=== PATIENT | male | born 1985 | race Caucasian/White ===

== ENCOUNTER 2023-01-09 21:56 | Inpatient (IN) ==
[2023-01-09] MEDS ORDERED: SODIUM CHLORIDE 0.9% 1,000 ML IV SCH (22:45)
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
[2023-01-09 23:09] LABS: iSTAT Creatinine 1.1 mg/dl (0.6-1.3); iSTAT Hemoglobin 10.5 g/dl (14.0-18.0); iSTAT Ionized Calcium 0.86 mmol/l (1.12-1.32); iSTAT Potassium 2.7 mmol/L (3.3-5.0)
[2023-01-09] MEDS ORDERED: OPTIRAY 320 100ml IV ONE (23:23)
[2023-01-09 23:31] LABS: Alanine Aminotransferase 31 U/L (7-52); Albumin Globulin Ratio 0.9 (0.9-2); Albumin Level 3.3 gm/dl (3.4-5.0); Alkaline Phosphatase 151 U/L (34-104); Anion Gap 17 (3-11); Aspartate Aminotransferase 122 U/L (13-39); BUN Creatinine Ratio 9.6 (10-20); Bilirubin,Total 0.6 mg/dl (0.2-1.0); Blood Urea Nitrogen 7 mg/dl (6-23); Calcium 7.5 mg/dl (8.6-10.3); Carbon Dioxide 26 mmol/L (21-32); Chloride 91 mmol/L (98-107); Est GFR (African American) 138.3 ml/min; Est GFR (Non-African American) 119.3 ml/min; Globulin 3.7 gm/dl (2.5-4.0); Glucose 197 mg/dl (70-99(Fasting)); Potassium 2.8 mmol/L (3.5-5.1); Sodium 134 mmol/L (136-145)
[2023-01-09 23:38] LABS: Troponin I High Sensitivity 8.1 pg/ml (0-20)
[2023-01-09 23:49] LABS: Basophils # (auto) 0.03 K/uL (0.00-0.20); Basophils % (auto) 0.5 %; Hematocrit (blood only) 31.5 % (42.0-52.0); Hemoglobin 11.5 g/dl (14.0-18.0); Immature Granulocytes # (auto) 0.06 K/uL (0.01-0.20); Immature Granulocytes % (auto) 1.1 %; Lymphocytes # (auto) 0.62 K/uL (1.20-3.40); Lymphocytes % (auto) 11.1 %; Mean Corpuscular Hemoglobin 34.5 pg (25.0-34.0); Mean Corpuscular Hgb Conc 36.5 g/dL (32.0-36.0); Mean Corpuscular Volume 94.6 fL (80.0-100.0); Monocytes # (auto) 0.83 K/uL (0.11-0.59); Monocytes % (auto) 14.9 %; Neutrophils # (auto) 4.03 K/uL (1.40-6.50); Neutrophils % (auto) 72.4 %; Platelet Count 89 K/uL (130-400); Platelet Estimate Decreased (Normal); RDW Coefficient of Variation 12.4 % (11.5-14.5); RDW Standard Deviation 43.2 fL (36.4-46.3); Red Blood Count 3.33 M/uL (4.70-6.10); White Blood Count 5.57 K/ul (4.8-10.8)
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
[2023-01-09 23:54] LABS: INR 1.2 (0.9-1.1); Prothrombin Time 12.6 Seconds (9.0-12.0)
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
[2023-01-10 01:27] LABS: Appearance Urine Clear (Clear); Bacteria Urine Automated Negative (Negative); Bilirubin Urine Negative (Negative); Blood Urine 1+ (Negative); Color Urine Yellow; Glucose Urine UA Negative (Negative); Ketones Urine Trace (Negative); Leukocyte Esterase Urine Negative (Negative); Nitrite Urine Negative (Negative); Protein Urine 2+ (Negative); Specific Gravity Urine > 1.045 (1.000-1.030); Urobilinogen Urine Negative (Negative); pH Urine 6.5 (4.5-7.5)
[2023-01-10] MEDS ORDERED: POTASSIUM CHLORIDE 20 MEQ/15 ML UDC PO STA (01:30)
[2023-01-10] MEDS ORDERED: FOLIC ACID 1 MG TAB PO STA (01:30)
[2023-01-10] MEDS ORDERED: THIAMINE HCL 100 MG TAB PO STA (01:30)
[2023-01-10 01:59] LABS: Amphetamines+Metham, Urine Neg (Neg); Barbiturates, Urine Neg (Neg); Benzodiazepine, Urine Neg (Neg); Cocaine, Urine Neg (Neg); MDMA (Ecstacy), Urine Neg (Neg); Methadone, Urine Neg (Neg); Opiate, Urine Neg (Neg); Phencyclidine, Urine Neg (Neg)
[2023-01-10] MEDS ORDERED: POTASSIUM CHLORIDE CRTAB 20 MEQ TABCR PO STA (02:32)
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
[2023-01-10] MEDS ORDERED: LORazepam 2 MG/1 ML VIAL IV STA ×2 (03:20→16:37)
[2023-01-10] MEDS ORDERED: LORazepam 1 MG TAB PO PRN (04:45)
[2023-01-10] MEDS: LACTATED RINGER'S 1,000 ML IV SCH ×2 (05:28→17:20)
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
[2023-01-10] MEDS: ACETAMINOPHEN 325 MG TAB PO PRN (07:22)
--- NOTE | 2023-01-10 07:46 | Electrocardiogram Report ---
Test Reason : Blood Pressure : / mmHG Vent. Rate : 123 BPM Atrial Rate : 123 BPM P-R Int : 152 ms QRS Dur : 098 ms QT Int : 322 ms P-R-T Axes : 066 070 070 degrees QTc Int : 460 ms Sinus tachycardia Otherwise normal ECG No previous ECGs available Confirmed by Morris Carvajal ([id number] on 01/10/2023 7:46:30 AM Referred By: REFERRED SELF Confirmed By:Matteo Carvajal
[2023-01-10 08:54] LABS: Basophils # (auto) 0.02 K/uL (0.00-0.20); Basophils % (auto) 0.5 %; Hematocrit (blood only) 28.9 % (42.0-52.0); Hemoglobin 10.3 g/dl (14.0-18.0); Immature Granulocytes # (auto) 0.03 K/uL (0.01-0.20); Immature Granulocytes % (auto) 0.7 %; Lymphocytes # (auto) 0.48 K/uL (1.20-3.40); Lymphocytes % (auto) 11.2 %; Mean Corpuscular Hemoglobin 33.4 pg (25.0-34.0); Mean Corpuscular Hgb Conc 35.6 g/dL (32.0-36.0); Mean Corpuscular Volume 93.8 fL (80.0-100.0); Mean Platelet Volume 9.3 fL (9.4-12.4); Monocytes # (auto) 0.69 K/uL (0.11-0.59); Monocytes % (auto) 16.2 %; Neutrophils # (auto) 3.05 K/uL (1.40-6.50); Neutrophils % (auto) 71.4 %; Platelet Count 62 K/uL (130-400); RDW Coefficient of Variation 12.4 % (11.5-14.5); RDW Standard Deviation 42.9 fL (36.4-46.3); Red Blood Count 3.08 M/uL (4.70-6.10); White Blood Count 4.27 K/ul (4.8-10.8)
[2023-01-10] MEDS: MULTIVITAMIN TAB PO SCH (09:10)
[2023-01-10] MEDS: FOLIC ACID 1 MG TAB PO SCH (09:10)
[2023-01-10] MEDS: THIAMINE HCL 100 MG TAB PO SCH ×2 (09:10→23:17)
[2023-01-10 09:11] LABS: Anion Gap 12 (3-11); BUN Creatinine Ratio 8.3 (10-20); Blood Urea Nitrogen 5 mg/dl (6-23); C Reactive Protein 9.11 mg/dl (0-0.5); Calcium 7.1 mg/dl (8.6-10.3); Carbon Dioxide 27 mmol/L (21-32); Chloride 95 mmol/L (98-107); Est GFR (African American) 149.9 ml/min; Est GFR (Non-African American) 129.4 ml/min; Glucose 91 mg/dl (70-99(Fasting)); Potassium 3.1 mmol/L (3.5-5.1); Sodium 134 mmol/L (136-145)
[2023-01-10 09:14] LABS: Alanine Aminotransferase 25 U/L (7-52); Albumin Globulin Ratio 0.9 (0.9-2); Alkaline Phosphatase 120 U/L (34-104); Aspartate Aminotransferase 97 U/L (13-39); Bilirubin,Total 0.6 mg/dl (0.2-1.0); Globulin 3.2 gm/dl (2.5-4.0); Magnesium 0.7 mg/dl (1.7-2.4); Total Protein 6.2 gm/dl (6.0-8.3)
[2023-01-10 09:48] LABS: Phosphorus 2.9 mg/dl (2.5-4.9)
[2023-01-10] MEDS: MAGNESIUM SULFATE / D5W 1 GM/100 ML BAG IV SCH ×2 (12:01→13:10)
[2023-01-10 15:11] LABS: Hematocrit (blood only) 30.1 % (42.0-52.0); Hemoglobin 11.2 g/dl (14.0-18.0)
[2023-01-10] MEDS ORDERED: Ativan IV Alcohol Withdrawal--Active Protocol IV PRN (16:38)
[2023-01-10] MEDS ORDERED: LORazepam 2 MG/1 ML VIAL IV PRN (16:38)
[2023-01-10] MEDS ORDERED: LORazepam 2 MG/1 ML VIAL ONE (16:43)
[2023-01-10] MEDS: LORazepam 2 MG/1 ML VIAL IV PRN ×2 (19:51→23:18)
--- NOTE | 2023-01-10 20:02 | Billing Data ---
Date of Service January 10, 2023 Coding Level of Care Code 94760 INT INP/OBS CARE
[2023-01-10] MEDS: POTASSIUM CHLORIDE CRTAB 20 MEQ TABCR PO SCH (23:18)
[2023-01-11] MEDS: LORazepam 2 MG/1 ML VIAL IV PRN ×5 (02:15→23:35)
[2023-01-11 06:02] LABS: Basophils # (auto) 0.01 K/uL (0.00-0.20); Basophils % (auto) 0.3 %; Hemoglobin 10.6 g/dl (14.0-18.0); Immature Granulocytes # (auto) 0.03 K/uL (0.01-0.20); Lymphocytes # (auto) 0.63 K/uL (1.20-3.40); Lymphocytes % (auto) 20.4 %; Mean Corpuscular Hemoglobin 33.7 pg (25.0-34.0); Mean Corpuscular Hgb Conc 35.3 g/dL (32.0-36.0); Mean Corpuscular Volume 95.2 fL (80.0-100.0); Mean Platelet Volume 10.3 fL (9.4-12.4); Monocytes # (auto) 0.58 K/uL (0.11-0.59); Monocytes % (auto) 18.8 %; Neutrophils # (auto) 1.84 K/uL (1.40-6.50); Neutrophils % (auto) 59.5 %; Nucleated RBC # (auto) 0.02 K/uL (0.00-0.12); Nucleated RBC % (auto) 0.6 %; Platelet Count 56 K/uL (130-400); RDW Coefficient of Variation 12.1 % (11.5-14.5); Red Blood Count 3.15 M/uL (4.70-6.10); White Blood Count 3.09 K/ul (4.8-10.8)
[2023-01-11 06:24] LABS: Alanine Aminotransferase 23 U/L (7-52); Albumin Globulin Ratio 0.8 (0.9-2); Albumin Level 2.8 gm/dl (3.4-5.0); Alkaline Phosphatase 125 U/L (34-104); Anion Gap 10 (3-11); Aspartate Aminotransferase 82 U/L (13-39); BUN Creatinine Ratio 5.1 (10-20); Bilirubin,Total 0.7 mg/dl (0.2-1.0); Blood Urea Nitrogen 4 mg/dl (6-23); C Reactive Protein 9.96 mg/dl (0-0.5); Calcium 7.7 mg/dl (8.6-10.3); Carbon Dioxide 28 mmol/L (21-32); Chloride 95 mmol/L (98-107); Est GFR (African American) 133.9 ml/min; Est GFR (Non-African American) 115.5 ml/min; Globulin 3.3 gm/dl (2.5-4.0); Glucose 83 mg/dl (70-99(Fasting)); Magnesium 1.3 mg/dl (1.7-2.4); Potassium 3.6 mmol/L (3.5-5.1); Sodium 133 mmol/L (136-145); Total Protein 6.1 gm/dl (6.0-8.3)
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
[2023-01-11] MEDS: MAGNESIUM SULFATE / D5W 1 GM/100 ML BAG IV SCH ×4 (07:59→17:38)
[2023-01-11] MEDS: POTASSIUM CHLORIDE CRTAB 20 MEQ TABCR PO SCH ×2 (09:56→20:18)
[2023-01-11] MEDS: THIAMINE HCL 100 MG TAB PO SCH ×2 (09:56→19:52)
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
[2023-01-11] MEDS: FOLIC ACID 1 MG TAB PO SCH (10:06)
[2023-01-11] MEDS: MULTIVITAMIN TAB PO SCH (10:06)
--- NOTE | 2023-01-11 19:23 | Billing Data ---
Date of Service January 11, 2023 Coding Level of Care Code 63437 SUB INP/OBS CARE MIN
[2023-01-12] MEDS: LORazepam 2 MG/1 ML VIAL IV PRN ×3 (00:33→02:55)
[2023-01-12] MEDS ORDERED: PHENobarbital sodium 65 MG/ML VIAL IM PRN ×3 (02:52→22:43)
[2023-01-12] MEDS ORDERED: PHENobarbital sodium 130 MG/ML VIAL IM STA (02:52)
[2023-01-12] MEDS ORDERED: Patient's HEIGHT Needed STA (04:07)
[2023-01-12] MEDS: PHENobarbital sodium 65 MG/ML VIAL IM SCH ×2 (06:12→10:08)
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
[2023-01-12 08:39] LABS: Hematocrit (blood only) 34.4 % (42.0-52.0); Hemoglobin 12.3 g/dl (14.0-18.0); Mean Corpuscular Hemoglobin 33.7 pg (25.0-34.0); Mean Corpuscular Hgb Conc 35.8 g/dL (32.0-36.0); Mean Corpuscular Volume 94.2 fL (80.0-100.0); Mean Platelet Volume 11.1 fL (9.4-12.4); Platelet Count 68 K/uL (130-400); RDW Coefficient of Variation 12.2 % (11.5-14.5); RDW Standard Deviation 42.5 fL (36.4-46.3); Red Blood Count 3.65 M/uL (4.70-6.10); White Blood Count 5.76 K/ul (4.8-10.8)
[2023-01-12] MEDS: MULTIVITAMIN TAB PO SCH (08:51)
[2023-01-12] MEDS: FOLIC ACID 1 MG TAB PO SCH (08:51)
[2023-01-12] MEDS: THIAMINE HCL 100 MG TAB PO SCH (08:51)
[2023-01-12] MEDS: LACTATED RINGER'S 1,000 ML IV SCH ×2 (08:52→19:37)
[2023-01-12 09:03] LABS: Albumin Globulin Ratio 0.8 (0.9-2); Albumin Level 3.1 gm/dl (3.4-5.0); BUN Creatinine Ratio 5.6 (10-20); Bilirubin,Total 0.8 mg/dl (0.2-1.0); C Reactive Protein 4.83 mg/dl (0-0.5); Calcium 8.2 mg/dl (8.6-10.3); Creatinine Clr Calc Pharmacy 150.5 ml/min; Est GFR (African American) 139.9 ml/min; Est GFR (Non-African American) 120.7 ml/min; Globulin 3.9 gm/dl (2.5-4.0); Magnesium 1.5 mg/dl (1.7-2.4); Phosphorus 1.7 mg/dl (2.5-4.9); Potassium 3.7 mmol/L (3.5-5.1)
[2023-01-12 09:12] LABS: INR 1.2 (0.9-1.1); Prothrombin Time 12.6 Seconds (9.0-12.0)
[2023-01-12] MEDS ORDERED: POTASSIUM PHOS 3 MMOL/1 ML INFUSION IV STA (09:14)
[2023-01-12] MEDS ORDERED: POTASSIUM PHOSPHATE 21 MMOL in SODIUM CHLORIDE 0.9% 500 ML IV ONE (09:30)
[2023-01-12] MEDS: MAGNESIUM SULFATE / D5W 1 GM/100 ML BAG IV SCH ×3 (10:10→13:49)
[2023-01-12] MEDS: ASCORBIC ACID 500 MG TAB PO SCH (13:49)
[2023-01-12] MEDS ORDERED: STAT IV Infusion **Titration per Protocol STA (18:26)
[2023-01-12] MEDS ORDERED: PHENobarbitaL 30 MG TAB PO ONE (18:29)
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
[2023-01-12] MEDS: PHENobarbitaL 30 MG TAB PO SCH (18:33)
[2023-01-12] MEDS: dexMEDEtomidine 200 MCG/50 ML BAG IV SCH ×2 (18:59→20:41)
[2023-01-12] MEDS ORDERED: PHENobarbitaL 20 MG/5 ML GT SCH (21:00)
[2023-01-12] MEDS: THIAMINE HCL 500 MG in SODIUM CHLORIDE 0.9% 50 ML IV SCH (22:43)
[2023-01-13] MEDS: THIAMINE HCL 100 MG TAB PO SCH (00:11)
[2023-01-13] MEDS: PHENobarbitaL 30 MG TAB PO SCH ×3 (02:34→18:43)
[2023-01-13 04:37] LABS: Albumin Globulin Ratio 0.8 (0.9-2); BUN Creatinine Ratio 7.2 (10-20); Bilirubin,Total 0.9 mg/dl (0.2-1.0); Calcium 7.9 mg/dl (8.6-10.3); Creatinine Clr Calc Pharmacy 128.8 ml/min; Est GFR (African American) 131.2 ml/min; Est GFR (Non-African American) 113.2 ml/min; Globulin 3.7 gm/dl (2.5-4.0); Magnesium 1.5 mg/dl (1.7-2.4); Phosphorus 2.8 mg/dl (2.5-4.9); Potassium 3.9 mmol/L (3.5-5.1); Total Protein 6.7 gm/dl (6.0-8.3)
[2023-01-13] MEDS: dexMEDEtomidine 200 MCG/50 ML BAG IV SCH (04:44)
[2023-01-13] MEDS: THIAMINE HCL 500 MG in SODIUM CHLORIDE 0.9% 50 ML IV SCH ×3 (04:44→20:25)
[2023-01-13 04:48] LABS: Hematocrit (blood only) 31.1 % (42.0-52.0); Hemoglobin 11.3 g/dl (14.0-18.0); Mean Corpuscular Hemoglobin 34.2 pg (25.0-34.0); Mean Corpuscular Hgb Conc 36.3 g/dL (32.0-36.0); Mean Corpuscular Volume 94.2 fL (80.0-100.0); Mean Platelet Volume 11.5 fL (9.4-12.4); Platelet Count 58 K/uL (130-400); RDW Coefficient of Variation 12.1 % (11.5-14.5); RDW Standard Deviation 41.8 fL (36.4-46.3); White Blood Count 7.77 K/ul (4.8-10.8)
[2023-01-13 04:52] LABS: INR 1.2 (0.9-1.1); Prothrombin Time 13.5 Seconds (9.0-12.0)
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
[2023-01-13] MEDS: MULTIVITAMIN TAB PO SCH (08:53)
[2023-01-13] MEDS: FOLIC ACID 1 MG TAB PO SCH (08:53)
[2023-01-13] MEDS: ASCORBIC ACID 500 MG TAB PO SCH (08:54)
[2023-01-13] MEDS: ACETAMINOPHEN 325 MG TAB PO PRN (09:23)
[2023-01-13] MEDS ORDERED: PHENobarbital sodium 65 MG/ML VIAL IV STA (10:09)
[2023-01-13] MEDS: MAGNESIUM SULFATE / D5W 1 GM/100 ML BAG IV SCH ×2 (10:46→13:01)
[2023-01-13] MEDS: MAGNESIUM OXIDE 400 MG TAB PO SCH ×2 (10:46→20:25)
[2023-01-13] MEDS: DOXYCYCLINE HYCLATE 100 MG CAP PO SCH ×2 (10:46→20:25)
[2023-01-13 11:03] LABS: Lyme Ab IgG w/WB Rflx Negative (Negative); Lyme Ab IgM w/WB Rflx Negative (Negative)
[2023-01-13 16:22] LABS: BUN Creatinine Ratio 9.9 (10-20); Est GFR (African American) 132.5 ml/min; Est GFR (Non-African American) 114.3 ml/min; Phosphorus 3.8 mg/dl (2.5-4.9); Potassium 3.3 mmol/L (3.5-5.1)
[2023-01-13] MEDS ORDERED: POTASSIUM CHLORIDE CRTAB 20 MEQ TABCR PO STA (18:21)
[2023-01-13] MEDS ORDERED: SODIUM CHLORIDE 0.9% 500 ML IV ONE (21:13)
[2023-01-13 22:37] LABS: A calco-baum cmplx NotReported Not Detected (NotDetected); Bact fragilis Not Reported Not Detected (NotDetected); C auris Not Reported Not Detected (NotDetected); Calbicans Not Reported Not Detected (NotDetected); Candida glabrata Not Reported Not Detected (NotDetected); Candida krusei Not Reported Not Detected (NotDetected); Cneoformans/gatti Not Reported Not Detected (NotDetected); Cparapsilosis Not Reported Not Detected (NotDetected); E cloacae compx Not Reported Not Detected (NotDetected); Efaecalis Not Reported Not Detected (NotDetected); Efaecium Not Reported Not Detected (NotDetected); Enterobacterales Not Reported Not Detected (NotDetected); Escherichia coli Not Reported Not Detected (NotDetected); H influenzae Not Reported Not Detected (NotDetected); K aerogenes Not Reported Not Detected (NotDetected); Koxytoca Not Reported Not Detected (NotDetected); Kpneumoniae grp Not Reported Not Detected (NotDetected); Lmonocyt Not Reported Not Detected (NotDetected); N meningitidis Not Reported Not Detected (NotDetected); P aeruginosa Not Reported Not Detected (NotDetected); Proteus spp Not Reported Not Detected (NotDetected); Salmonella spp Not Reported Not Detected (NotDetected); Smarcescens Not Reported Not Detected (NotDetected); Staph lugdunensis Not Reported Not Detected (NotDetected); Staph spp. Not Reported DETECTED (NotDetected); Staphaureus Not Reported DETECTED (NotDetected); Staphepi Not Reported Not Detected (NotDetected); Stenmaltophilia Not Reported Not Detected (NotDetected); Strep agal(GrpB) Not Reported Not Detected (NotDetected); Strep pneum Not Reported Not Detected (NotDetected); Strep pyog (GrpA) Not Reported Not Detected (NotDetected); Strep spp Not Reported Not Detected (NotDetected); mecAC+MREJ Resistant Gene MRSA Not Detected (NotDetected)
[2023-01-13 23:01] LABS: Staphylococcus spp. DETECTED (NotDetected)
[2023-01-13] MEDS: cefTRIAXone SODIUM 2,000 MG in DEXTROSE 5 % MINI-B 50 ML IV SCH (23:48)
[2023-01-14] MEDS ORDERED: ACETAMINOPHEN 1,000 MG/100 ML VIAL IV STA (00:09)
[2023-01-14] MEDS: PHENobarbitaL 30 MG TAB PO SCH ×3 (02:16→22:20)
[2023-01-14 05:17] LABS: Basophils # (auto) 0.05 K/uL (0.00-0.20); Basophils % (auto) 0.3 %; Eosinophils # (auto) 0.02 K/uL (0.00-0.50); Eosinophils % (auto) 0.1 %; Hematocrit (blood only) 31.4 % (42.0-52.0); Hemoglobin 11.3 g/dl (14.0-18.0); Immature Granulocytes # (auto) 0.17 K/uL (0.01-0.20); Immature Granulocytes % (auto) 1.2 %; Lymphocytes # (auto) 1.12 K/uL (1.20-3.40); Lymphocytes % (auto) 7.8 %; Mean Corpuscular Hemoglobin 34.1 pg (25.0-34.0); Mean Corpuscular Volume 94.9 fL (80.0-100.0); Mean Platelet Volume 11.6 fL (9.4-12.4); Monocytes # (auto) 1.39 K/uL (0.11-0.59); Monocytes % (auto) 9.7 %; Neutrophils # (auto) 11.54 K/uL (1.40-6.50); Neutrophils % (auto) 80.9 %; Platelet Count 68 K/uL (130-400); RDW Coefficient of Variation 12.6 % (11.5-14.5); RDW Standard Deviation 43.8 fL (36.4-46.3); Red Blood Count 3.31 M/uL (4.70-6.10); White Blood Count 14.29 K/ul (4.8-10.8)
[2023-01-14 05:30] LABS: Calcium 8.3 mg/dl (8.6-10.3); Creatinine Clr Calc Pharmacy 121.5 ml/min; Est GFR (African American) 128.1 ml/min; Est GFR (Non-African American) 110.5 ml/min; Magnesium 1.9 mg/dl (1.7-2.4); Phosphorus 4.6 mg/dl (2.5-4.9); Potassium 3.6 mmol/L (3.5-5.1)
[2023-01-14 05:40] LABS: INR 1.3 (0.9-1.1); Prothrombin Time 14.3 Seconds (9.0-12.0)
[2023-01-14] MEDS ORDERED: STAT IV/IM STA (05:50)
[2023-01-14] MEDS ORDERED: POTASSIUM CHLORIDE CRTAB 20 MEQ TABCR PO STA (06:00)
[2023-01-14] MEDS: MAGNESIUM SULFATE / D5W 1 GM/100 ML BAG IV SCH ×2 (06:16→08:15)
[2023-01-14] MEDS: CALCIUM GLUCONATE 10% 1,000 MG in SODIUM CHLOR 0.9% MINI-B 50 ML IV SCH ×2 (06:17→06:42)
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
[2023-01-14] MEDS: THIAMINE HCL 500 MG in SODIUM CHLORIDE 0.9% 50 ML IV SCH ×3 (07:08→22:19)
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
[2023-01-14] MEDS: MAGNESIUM OXIDE 400 MG TAB PO SCH ×2 (08:16→22:20)
[2023-01-14] MEDS: ASCORBIC ACID 500 MG TAB PO SCH (08:16)
[2023-01-14] MEDS: MULTIVITAMIN TAB PO SCH (08:16)
[2023-01-14] MEDS: FOLIC ACID 1 MG TAB PO SCH (08:18)
--- NOTE | 2023-01-14 09:32 | XCELERA ---
[id number] \\[email or web address]\[id number]
[2023-01-14] MEDS ORDERED: LACTATED RINGER'S 1,000 ML IV SCH (10:45)
[2023-01-14] MEDS: cefTRIAXone SODIUM 2,000 MG in DEXTROSE 5 % MINI-B 50 ML IV SCH (11:28)
[2023-01-14 13:34] LABS: GC (Neis gonorrhoeae) RNA Not Detected (NotDetected)
--- NOTE | 2023-01-14 14:49 | Anesthesiology Consultation ---
Date of Service January 14, 2023 Assessment & Plan Chart Review Chart Review: Acceptable Risk for Surgery and Patient NOT seen in Pre Admission Testing Consults Requested none History Height/Weight Height: 5 ft 11 in Weight: 74 kg Allergies Allergy/AdvReac Type Severity Reaction Status Date / Time ondansetron [From Zofran] AdvReac Hallucinati Verified 01/10/23 02:18 ng Medications Home Medications Medication Instructions Recorded Confirmed Last Taken aluminum chloride 20 % topical 1 applic topical [id number] PRN 08/06/21 01/10/23 Unknown solution (Drysol) excessive sweating #37.5 mL mometasone 50 mcg/actuation nasal 2 spray intranasal DAILY PRN nasal 08/15/21 01/10/23 Unknown spray congestion #17 grams dextroamphetamine-amphetamine 7.5 7.5 mg PO DAILY #30 tabs 10/13/22 01/10/23 Unknown mg tablet (Adderall) sildenafil (pulm.hypertension) 20 50 mg PO ONCE PRN sexual activity 11/18/22 01/10/23 Unknown mg tablet #60 tabs trazodone 50 mg tablet 25 - 50 mg PO HS PRN Sleep 01/10/23 01/10/23 Unknown Active Medications Generic Name Dose Route Start Last Admin Trade Name Freq PRN Reason Stop Dose Admin Acetaminophen 650 mg 01/10/23 04:45 01/13/23 09:23 Acetaminophen 325 Mg Tab PO 02/09/23 04:44 650 mg Q4H PRN Administration Pain or Fever Ascorbic Acid 500 mg 01/12/23 11:30 01/14/23 08:16 Ascorbic Acid 500 Mg Tab PO 02/11/23 11:29 500 mg QAM TOMY Administration Folic Acid 1 mg 01/10/23 09:00 01/14/23 08:18 Folic Acid 1 Mg Tab PO 02/09/23 08:59 Not Given QAM TOMY Thiamine HCl 500 mg/ Sodium 55 mls @ 210 mls/hr 01/12/23 21:30 01/14/23 14:11 Chloride IV 01/15/23 13:46 Infused Q8H TOMY Infusion Ceftriaxone Sodium 2,000 mg/ 50 mls @ 100 mls/hr 01/14/23 00:00 01/14/23 12:05 Dextrose IV 01/28/23 00:00 Infused Q12H TOMY Infusion Protocol Lactated Ringer's 1,000 mls @ 80 mls/hr 01/14/23 10:45 01/14/23 11:00 Lr IV 01/14/23 23:14 80 mls/hr .[id number] TOMY Administration Magnesium Oxide 400 mg 01/13/23 10:00 01/14/23 08:16 Magnesium Oxide 400 Mg Tab PO 02/12/23 09:59 400 mg BID TOMY Administration Multivitamins 1 tab 01/10/23 09:00 01/14/23 08:16 Multivitamin Tab PO 02/09/23 08:59 1 tab QAM TOMY Administration Past Medical History Medical History Alcohol abuse with intoxication Anxiety Assessment & Plan (1) Alcohol withdrawal: (2) Depression: (3) Electrolyte abnormality: (4) Transaminitis: (5) WALDEMAR (generalized anxiety disorder): (6) Skin abnormalities: Neuro - ETOH misuse, ETOH withdraw: Active delirium tremens: Improving -Oral phenobarbital taper - Continue thiamine and folate ID -presumptive MSSA bacteremia: Gram-positive cocci without methicillin- resistant gene Febrile illness -Randolph negative, throat culture and GC chlamydia swabs pending -Obtain repeat blood cultures 11/2 AM ordered -Transition from 1 day 100 mg doxycycline therapy to IV Rocephin Day 1 Past Family History Family History Mother Breast cancer Grandfather (Paternal) Myocardial infarction Uncle Prostate cancer Denies family history of Colon cancer Ovarian cancer Past Surgical History Surgical History History of wisdom tooth extraction Social History Smoking Status: Former smoker Do You Dip or Chew Tobacco: No Hx Alcohol Use: Yes Alcohol type: beer and hard liquor Hx Substance Use: No Physical Exam Vital Signs Last Vital Signs Temp 37.7 C H 01/14/23 11:38 Pulse 114 H 01/14/23 11:00 Resp 13 01/14/23 11:00 BP 133/90 01/14/23 11:00 Pulse Ox 98 01/14/23 11:00 O2 Del Method Room Air 01/14/23 08:35 Testing Laboratory Results 01/14/23 04:35 01/14/23 04:35 PT 14.3 Seconds (9.0-12.0) H 01/14/23 04:35 INR 1.3 (0.9-1.1) H 01/14/23 04:35 Urine Color Yellow 01/10/23 01:05 Urine Appearance Clear (Clear) 01/10/23 01:05 Urine pH 6.5 (4.5-7.5) 01/10/23 01:05 Ur Specific [place] 1.014 (1.000-1.030) 01/13/23 00:19 Urine Protein 2+ (Negative) H 01/10/23 01:05 Urine Glucose (UA) Negative (Negative) 01/10/23 01:05 Urine Ketones Trace (Negative) H 01/10/23 01:05 Urine Nitrite Negative (Negative) 01/10/23 01:05 Ur Leukocyte Esterase Negative (Negative) 01/10/23 01:05 Urine WBC (Auto) 1-5 /hpf (0-5) 01/10/23 01:05 Urine RBC (Auto) 5-10 /hpf (0-4) H 01/10/23 01:05 U Hyaline Cast (Auto) 1-5 /lpf (0-5) 01/10/23 01:05 U Epithel Cells (Auto) 5-10 /lpf (0-5) H 01/10/23 01:05 Urine Bacteria (Auto) Negative (Negative) 01/10/23 01:05 01/13/23 11:44 Throat Culture - Preliminary Throat Moderate normal erick present, final report to follow. 01/13/23 10:06 Aerobic Blood Culture - Preliminary Blood Staphylococcus species Anaerobic Blood Culture - Preliminary Staphylococcus species 01/13/23 10:02 Aerobic Blood Culture - Preliminary Blood Staphylococcus species Anaerobic Blood Culture - Preliminary Staphylococcus species 01/13/23 13:55 Gram Stain - Final Back,Upper Wound Culture - Preliminary Staphylococcus species Electrocardiogram Date: 01/10/23 DICTATED BY:Morris Carvajal MD Test Reason : Blood Pressure : / mmHG Vent. Rate : 123 BPM Atrial Rate : 123 BPM P-R Int : 152 ms QRS Dur : 098 ms QT Int : 322 ms P-R-T Axes : 066 070 070 degrees QTc Int : 460 ms Sinus tachycardia Otherwise normal ECG No previous ECGs available Confirmed by Morris Carvajal ([id number]) on 01/10/2023 7:46:30 AM
[2023-01-15] MEDS: cefTRIAXone SODIUM 2,000 MG in DEXTROSE 5 % MINI-B 50 ML IV SCH ×3 (00:21→23:07)
[2023-01-15] MEDS: THIAMINE HCL 500 MG in SODIUM CHLORIDE 0.9% 50 ML IV SCH ×2 (05:26→13:15)
[2023-01-15 06:28] LABS: Babesia microti DNA Not Detected (Not Detected)
[2023-01-15 07:02] LABS: Hematocrit (blood only) 26.6 % (42.0-52.0); Hemoglobin 9.7 g/dl (14.0-18.0); Mean Corpuscular Hemoglobin 34.2 pg (25.0-34.0); Mean Corpuscular Hgb Conc 36.5 g/dL (32.0-36.0); Mean Corpuscular Volume 93.7 fL (80.0-100.0); Mean Platelet Volume 11.6 fL (9.4-12.4); Platelet Count 105 K/uL (130-400); RDW Coefficient of Variation 12.6 % (11.5-14.5); RDW Standard Deviation 43.7 fL (36.4-46.3); Red Blood Count 2.84 M/uL (4.70-6.10); White Blood Count 9.32 K/ul (4.8-10.8)
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
[2023-01-15 07:08] LABS: BUN Creatinine Ratio 12.1 (10-20); Calcium 8.1 mg/dl (8.6-10.3); Creatinine Clr Calc Pharmacy 161.3 ml/min; Est GFR (African American) 144.2 ml/min; Est GFR (Non-African American) 124.4 ml/min; Magnesium 1.7 mg/dl (1.7-2.4); Phosphorus 3.4 mg/dl (2.5-4.9); Potassium 3.6 mmol/L (3.5-5.1)
[2023-01-15 07:11] LABS: Basophils # (auto) 0.02 K/uL (0.00-0.20); Basophils % (auto) 0.2 %; Immature Granulocytes # (auto) 0.63 K/uL (0.01-0.20); Immature Granulocytes % (auto) 6.8 %; Lymphocytes # (auto) 0.74 K/uL (1.20-3.40); Lymphocytes % (auto) 7.9 %; Monocytes # (auto) 1.17 K/uL (0.11-0.59); Monocytes % (auto) 12.6 %; Neutrophils # (auto) 6.76 K/uL (1.40-6.50); Neutrophils % (auto) 72.5 %
[2023-01-15 07:38] LABS: INR 1.2 (0.9-1.1)
[2023-01-15] MEDS: PHENobarbitaL 30 MG TAB PO SCH ×2 (09:43→23:00)
[2023-01-15] MEDS: FOLIC ACID 1 MG TAB PO SCH (09:43)
[2023-01-15] MEDS: MULTIVITAMIN TAB PO SCH (09:44)
[2023-01-15] MEDS: MAGNESIUM OXIDE 400 MG TAB PO SCH ×2 (09:44→20:13)
[2023-01-15] MEDS: ASCORBIC ACID 500 MG TAB PO SCH (09:44)
[2023-01-15] MEDS ORDERED: LACTATED RINGER'S 1,000 ML IV SCH (10:00)
[2023-01-15 11:17] LABS: HBSAG NON-REACTIVE (NON-REACTIVE); Hepatitis A Antibody IgM NON-REACTIVE (NON-REACTIVE); Hepatitis B Core Antibody IgM NON-REACTIVE (NON-REACTIVE)
[2023-01-15 13:39] LABS: C Reactive Protein 39.26 mg/dl (0-0.5)
[2023-01-15 15:27] LABS: Hematocrit (blood only) 26.2 % (42.0-52.0); Hemoglobin 9.7 g/dl (14.0-18.0)
[2023-01-15 22:19] LABS: Appearance Urine Clear (Clear); Bacteria Urine Automated Negative (Negative); Blood Urine Negative (Negative); Color Urine Orange; Glucose Urine UA Negative (Negative); Ketones Urine 1+ (Negative); Leukocyte Esterase Urine Trace (Negative); Nitrite Urine Positive (Negative); Protein Urine 1+ (Negative); Specific Gravity Urine 1.029 (1.000-1.030); Urobilinogen Urine Negative (Negative)
[2023-01-15 22:29] LABS: Bilirubin Urine 2+ (Negative)
[2023-01-16] MEDS ORDERED: PHENobarbitaL 30 MG TAB PO STA (03:05)
[2023-01-16 06:59] LABS: Anion Gap 7 (3-11); BUN Creatinine Ratio 14.3 (10-20); Blood Urea Nitrogen 8 mg/dl (6-23); Carbon Dioxide 27 mmol/L (21-32); Chloride 95 mmol/L (98-107); Creatinine Clr Calc Pharmacy 194.2 ml/min; Est GFR (African American) > 150.0 ml/min; Est GFR (Non-African American) 133.1 ml/min; Glucose 108 mg/dl (70-99(Fasting)); Magnesium 1.7 mg/dl (1.7-2.4); Phosphorus 2.8 mg/dl (2.5-4.9); Potassium 3.4 mmol/L (3.5-5.1); Sodium 129 mmol/L (136-145)
[2023-01-16 07:02] LABS: Basophils # (auto) 0.02 K/uL (0.00-0.20); Basophils % (auto) 0.4 %; Eosinophils # (auto) 0.01 K/uL (0.00-0.50); Eosinophils % (auto) 0.2 %; Hematocrit (blood only) 27.7 % (42.0-52.0); Hemoglobin 9.8 g/dl (14.0-18.0); Immature Granulocytes # (auto) 0.03 K/uL (0.01-0.20); Immature Granulocytes % (auto) 0.5 %; Lymphocytes % (auto) 12.4 %; Mean Corpuscular Hemoglobin 33.4 pg (25.0-34.0); Mean Corpuscular Hgb Conc 35.4 g/dL (32.0-36.0); Mean Corpuscular Volume 94.5 fL (80.0-100.0); Mean Platelet Volume 12.1 fL (9.4-12.4); Monocytes # (auto) 0.92 K/uL (0.11-0.59); Monocytes % (auto) 16.3 %; Neutrophils # (auto) 3.98 K/uL (1.40-6.50); Neutrophils % (auto) 70.2 %; Platelet Count 163 K/uL (130-400); RDW Coefficient of Variation 12.6 % (11.5-14.5); RDW Standard Deviation 44.1 fL (36.4-46.3); Red Blood Count 2.93 M/uL (4.70-6.10); White Blood Count 5.66 K/ul (4.8-10.8)
[2023-01-16 07:09] LABS: INR 1.1 (0.9-1.1); Prothrombin Time 11.9 Seconds (9.0-12.0)
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
[2023-01-16 08:30] LABS: C Reactive Protein 29.98 mg/dl (0-0.5)
[2023-01-16] MEDS: FOLIC ACID 1 MG TAB PO SCH (09:08)
[2023-01-16] MEDS: PHENobarbitaL 30 MG TAB PO SCH ×2 (09:08→21:16)
[2023-01-16] MEDS: THIAMINE HCL 100 MG TAB PO SCH (09:09)
[2023-01-16] MEDS: LACTATED RINGER'S 1,000 ML IV SCH ×2 (09:09→15:22)
[2023-01-16] MEDS: MULTIVITAMIN TAB PO SCH (09:09)
[2023-01-16] MEDS: MAGNESIUM OXIDE 400 MG TAB PO SCH ×2 (09:09→21:17)
[2023-01-16] MEDS ORDERED: ceFAZolin 2000MG 2,000 MG/15 ML SYR IV STA (09:11)
--- NOTE | 2023-01-16 10:18 | XRay Report ---
XR chest 1V portable CLINICAL HISTORY: Shortness of breath. COMPARISON STUDY: Chest CT January 09, 2023. FINDINGS: There is no pneumothorax. Possible small left pleural effusion. Lung volumes are mildly dim inished. There are bibasilar opacities, greater on the left. Cardiomediastinal silhouette is unremark able. There is no evidence for pulmonary edema. IMPRESSION: 1. Low lung volumes with bibasilar opacities, greater on the left. These opacities could reflect pneu monia or atelectasis. 2. Possible small left pleural effusion. No pneumothorax. ACT 112: Negative or not required by law. Electronically signed by: Feliberto Loyola M.D. 01/16/2023 10:17 AM
[2023-01-16] MEDS: CEFEPIME 2,000 MG in SYRINGE 0 ML IV SCH ×2 (13:13→20:15)
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
[2023-01-16] MEDS ORDERED: SODIUM CHLORIDE 0.9% 1,000 ML IV SCH (16:30)
[2023-01-16] MEDS ORDERED: ceFAZolin 2000MG 2,000 MG/15 ML SYR IV SCH (18:00)
[2023-01-16] MEDS ORDERED: PHENobarbital sodium 65 MG/ML VIAL IM STA (23:15)
[2023-01-17] MEDS: CEFEPIME 2,000 MG in SYRINGE 0 ML IV SCH ×3 (03:08→20:56)
[2023-01-17 06:26] LABS: Hematocrit (blood only) 28.8 % (42.0-52.0); Hemoglobin 10.5 g/dl (14.0-18.0); Mean Corpuscular Hemoglobin 34.4 pg (25.0-34.0); Mean Corpuscular Hgb Conc 36.5 g/dL (32.0-36.0); Mean Corpuscular Volume 94.4 fL (80.0-100.0); Mean Platelet Volume 11.2 fL (9.4-12.4); Platelet Count 272 K/uL (130-400); RDW Coefficient of Variation 12.5 % (11.5-14.5); Red Blood Count 3.05 M/uL (4.70-6.10); White Blood Count 7.43 K/ul (4.8-10.8)
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
[2023-01-17] MEDS: ACETAMINOPHEN 325 MG TAB PO PRN ×3 (07:30→20:26)
[2023-01-17] MEDS: MULTIVITAMIN TAB PO SCH (07:32)
[2023-01-17] MEDS: FOLIC ACID 1 MG TAB PO SCH (07:32)
[2023-01-17] MEDS: THIAMINE HCL 100 MG TAB PO SCH (07:32)
[2023-01-17] MEDS: PHENobarbitaL 30 MG TAB PO SCH ×2 (07:34→21:16)
[2023-01-17] MEDS: MAGNESIUM OXIDE 400 MG TAB PO SCH ×2 (07:35→20:26)
[2023-01-17 07:40] LABS: Alanine Aminotransferase 43 U/L (7-52); Albumin Globulin Ratio 0.7 (0.9-2); Albumin Level 2.6 gm/dl (3.4-5.0); Alkaline Phosphatase 95 U/L (34-104); Anion Gap 12 (3-11); Aspartate Aminotransferase 90 U/L (13-39); BUN Creatinine Ratio 9.3 (10-20); Bilirubin,Total 0.9 mg/dl (0.2-1.0); Blood Urea Nitrogen 5 mg/dl (6-23); C Reactive Protein 20.01 mg/dl (0-0.5); Calcium 8.3 mg/dl (8.6-10.3); Carbon Dioxide 24 mmol/L (21-32); Chloride 97 mmol/L (98-107); Creatinine Clr Calc Pharmacy 196.6 ml/min; Est GFR (African American) > 150.0 ml/min; Est GFR (Non-African American) 135.1 ml/min; Glucose 87 mg/dl (70-99(Fasting)); Magnesium 1.7 mg/dl (1.7-2.4); Phosphorus 3.1 mg/dl (2.5-4.9); Potassium 3.4 mmol/L (3.5-5.1); Sodium 133 mmol/L (136-145); Total Protein 6.6 gm/dl (6.0-8.3)
[2023-01-17] MEDS ORDERED: POTASSIUM CHLORIDE CRTAB 20 MEQ TABCR PO ONE (07:44)
[2023-01-17 07:54] LABS: INR 1.2 (0.9-1.1); Prothrombin Time 12.5 Seconds (9.0-12.0)
--- NOTE | 2023-01-17 12:09 | Communication Note ---
Date of Service: January 17, 2023 Patient was sleeping during rounds. Continues with periods of intermittent confusion, responding to internal stimuli, tachy. Phenobarb taper, no recent A tivan prn. Ativan 1 mg q6 prn typically preferred over antipsychotics for withdrawal delirium. If he does get aggressive Zyprexa 5 mg IM would be fine as his sodium has improved. Hospitalist updated.
[2023-01-17] MEDS ORDERED: LORazepam 2 MG/1 ML VIAL IV PRN (16:35)
[2023-01-18] MEDS: CEFEPIME 2,000 MG in SYRINGE 0 ML IV SCH ×3 (04:49→20:35)
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
[2023-01-18 07:15] LABS: Hematocrit (blood only) 26.8 % (42.0-52.0); Hemoglobin 9.5 g/dl (14.0-18.0); Mean Corpuscular Hemoglobin 33.7 pg (25.0-34.0); Mean Corpuscular Hgb Conc 35.4 g/dL (32.0-36.0); Platelet Count 393 K/uL (130-400); RDW Standard Deviation 45.6 fL (36.4-46.3); Red Blood Count 2.82 M/uL (4.70-6.10); White Blood Count 10.85 K/ul (4.8-10.8)
[2023-01-18] MEDS ORDERED: LACTATED RINGER'S 1,000 ML IV SCH (07:30)
[2023-01-18 07:31] LABS: Alanine Aminotransferase 44 U/L (7-52); Albumin Globulin Ratio 0.7 (0.9-2); Albumin Level 2.5 gm/dl (3.4-5.0); Alkaline Phosphatase 94 U/L (34-104); Anion Gap 8 (3-11); Aspartate Aminotransferase 54 U/L (13-39); BUN Creatinine Ratio 9.3 (10-20); Bilirubin,Total 0.8 mg/dl (0.2-1.0); Blood Urea Nitrogen 5 mg/dl (6-23); Calcium 7.9 mg/dl (8.6-10.3); Carbon Dioxide 26 mmol/L (21-32); Chloride 95 mmol/L (98-107); Creatinine Clr Calc Pharmacy 199.8 ml/min; Est GFR (African American) > 150.0 ml/min; Est GFR (Non-African American) 135.1 ml/min; Globulin 3.8 gm/dl (2.5-4.0); Glucose 106 mg/dl (70-99(Fasting)); Magnesium 1.6 mg/dl (1.7-2.4); Phosphorus 2.7 mg/dl (2.5-4.9); Potassium 3.5 mmol/L (3.5-5.1); Sodium 129 mmol/L (136-145); Total Protein 6.3 gm/dl (6.0-8.3)
[2023-01-18] MEDS ORDERED: MAGNESIUM SULFATE / D5W 1 GM/100 ML BAG IV ONE (07:35)
[2023-01-18] MEDS: MAGNESIUM OXIDE 400 MG TAB PO SCH ×2 (07:43→20:35)
[2023-01-18] MEDS: PHENobarbitaL 30 MG TAB PO SCH ×2 (07:43→17:47)
[2023-01-18] MEDS: ACETAMINOPHEN 325 MG TAB PO PRN ×3 (07:43→23:48)
[2023-01-18] MEDS: FOLIC ACID 1 MG TAB PO SCH (07:44)
[2023-01-18] MEDS: THIAMINE HCL 100 MG TAB PO SCH (07:44)
[2023-01-18] MEDS: MULTIVITAMIN TAB PO SCH (07:44)
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
[2023-01-18] MEDS ORDERED: GADOBUTROL 65ML VIAL IV ONE (13:55)
--- NOTE | 2023-01-18 15:09 | XRay Report ---
XR chest 1V portable CLINICAL HISTORY: HAP TECHNIQUE: Single frontal radiograph of the chest was obtained. Comparison: Comparison is made to chest radiograph 01/16/2023 FINDINGS: No lines and tubes are seen. The cardiomediastinal silhouette is normal. Opacities are seen in the ri ght perihilar lung and left lung base. Small bilateral pleural effusions are seen. IMPRESSION: 1. Scattered airspace opacities are stable to minimally increased from prior exam. 2. Small bilateral pleural effusions. ACT 112: Negative or not required by law. Electronically signed by: Merlin Slater M.D. 01/18/2023 3:08 PM
--- NOTE | 2023-01-18 15:17 | Magnetic Resonance Report ---
MR brain wo/w con CLINICAL HISTORY: encephalopathy TECHNIQUE: Multiplanar and multisequence MR images of the brain were obtained prior to and following administration of gadolinium contrast. Comparison: None available at the time of this dictation. FINDINGS: There is a small focus of increased DWI signal in the left temporal lobe with modestly decreased ADC corresponding to a defined focus of edema and possible encephalomalacia on T1/T2 weighted imaging. Fo ci of T2 and FLAIR hyperintensity are noted in the paraventricular areas consistent with chronic smal l vessel ischemic disease. Ex vacuo ventriculomegaly and sulcal enlargement is noted compatible with diffuse volume loss. No mass or abnormal enhancement is seen. There is no mass effect or midline shif t. There is no evidence of acute intraparenchymal hemorrhage. No extra axial fluid collections are se en. The corpus callosum, pituitary gland, and cerebellar tonsils appear grossly unremarkable. Flow voids of the major intracranial arterial vessels are identified. The imaged portions of the para nasal sinuses, mastoid air cells, and orbits are unremarkable. IMPRESSION: Punctate left temporal focus of increased DWI signal with equivocal ADC may reflect pseudonormalizati on of ADC as seen in the subacute stage of an acute lacunar infarct. Otherwise no acute abnormalities are seen. ACT 112: Negative or not required by law. Electronically signed by: Merlin Slater M.D. 01/18/2023 3:14 PM
[2023-01-19] MEDS: CEFEPIME 2,000 MG in SYRINGE 0 ML IV SCH ×2 (04:08→13:33)
[2023-01-19] MEDS: ACETAMINOPHEN 325 MG TAB PO PRN ×3 (05:27→23:28)
[2023-01-19 06:44] LABS: Hematocrit (blood only) 28.1 % (42.0-52.0); Hemoglobin 9.9 g/dl (14.0-18.0); Mean Corpuscular Hemoglobin 34.1 pg (25.0-34.0); Mean Corpuscular Hgb Conc 35.2 g/dL (32.0-36.0); Mean Corpuscular Volume 96.9 fL (80.0-100.0); Mean Platelet Volume 10.6 fL (9.4-12.4); Platelet Count 506 K/uL (130-400); RDW Coefficient of Variation 13.2 % (11.5-14.5); RDW Standard Deviation 46.8 fL (36.4-46.3); White Blood Count 10.16 K/ul (4.8-10.8)
[2023-01-19 06:48] LABS: Anion Gap 7 (3-11); BUN Creatinine Ratio 10.9 (10-20); Blood Urea Nitrogen 6 mg/dl (6-23); C Reactive Protein 27.17 mg/dl (0-0.5); Carbon Dioxide 27 mmol/L (21-32); Chloride 98 mmol/L (98-107); Creatinine Clr Calc Pharmacy 197.8 ml/min; Est GFR (African American) > 150.0 ml/min; Est GFR (Non-African American) 134.1 ml/min; Glucose 99 mg/dl (70-99(Fasting)); Magnesium 1.8 mg/dl (1.7-2.4); Potassium 3.6 mmol/L (3.5-5.1); Sodium 132 mmol/L (136-145)
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
[2023-01-19] MEDS: MULTIVITAMIN TAB PO SCH (09:25)
[2023-01-19] MEDS: THIAMINE HCL 100 MG TAB PO SCH ×2 (09:25→20:10)
[2023-01-19] MEDS: FOLIC ACID 1 MG TAB PO SCH (09:25)
[2023-01-19] MEDS: MAGNESIUM OXIDE 400 MG TAB PO SCH ×2 (09:27→20:09)
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
--- NOTE | 2023-01-19 17:14 | Billing Data ---
Date of Service January 19, 2023 Coding Level of Care Code 62831 SUB INP/OBS CARE
[2023-01-19] MEDS ORDERED: OPTIRAY 320 500ml IV ONE (20:03)
[2023-01-19] MEDS ORDERED: ceFAZolin 2000MG 2,000 MG/15 ML SYR IV SCH (20:30)
--- NOTE | 2023-01-19 21:02 | CT Scan Report ---
Exam(s): CTA CHEST IV Amt: 112ML OPTIRAY 320 EXAM: CT Angiography Chest With Intravenous Contrast CLINICAL HISTORY: Reason for exam: PE. TECHNIQUE: Axial computed tomographic angiography images of the chest with intravenous contrast. CTDI is 37 mGy and DLP is 754.63 mGy-cm. Automated exposure control was utilized for the study. A dose lowering technique was utilized adhering to the principles of ALARA. MIP reconstructed images were created and reviewed. COMPARISON: No relevant prior studies available. FINDINGS: Pulmonary arteries: No acute pulmonary embolism. Evaluation is limited due to suboptimal contrast bolus timing. Aorta: No acute findings. No aortic aneurysm or dissection. Lungs: See below. Pleural space: Small bilateral pleural effusions. Subjacent airspace consolidation/atelectasis. Heart: Cardiomegaly. No significant pericardial effusion. No evidence of RV dysfunction. Bones/joints: No acute fracture. No dislocation. Soft tissues: Unremarkable. Lymph nodes: Unremarkable. No enlarged lymph nodes. Liver: Hepatic steatosis. Intraperitoneal space: Mild fluid in the RIGHT major fissure. IMPRESSION: 1. No aortic aneurysm or dissection. 2. Small bilateral pleural effusions. Subjacent airspace consolidation/atelectasis. 3. No acute pulmonary embolism. Evaluation is limited due to suboptimal contrast bolus timing. Electronically signed by: Thomas Rinaldi MD 01/19/23 21:01 PM
[2023-01-19] MEDS: PHENobarbitaL 30 MG TAB PO SCH (22:23)
[2023-01-19] MEDS: NAFCILLIN SODIUM 2,000 MG in DEXTROSE 5% MINI-B 100 ML IV SCH (22:25)
[2023-01-20] MEDS: NAFCILLIN SODIUM 2,000 MG in DEXTROSE 5% MINI-B 100 ML IV SCH ×6 (01:40→23:37)
[2023-01-20] MEDS: ACETAMINOPHEN 325 MG TAB PO PRN ×2 (04:57→23:06)
[2023-01-20 06:43] LABS: Hematocrit (blood only) 28.8 % (42.0-52.0); Mean Corpuscular Hemoglobin 33.7 pg (25.0-34.0); Mean Corpuscular Hgb Conc 34.7 g/dL (32.0-36.0); Mean Platelet Volume 10.2 fL (9.4-12.4); Platelet Count 713 K/uL (130-400); RDW Coefficient of Variation 13.3 % (11.5-14.5); RDW Standard Deviation 47.6 fL (36.4-46.3); Red Blood Count 2.97 M/uL (4.70-6.10); White Blood Count 11.62 K/ul (4.8-10.8)
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
[2023-01-20 07:16] LABS: Albumin Globulin Ratio 0.6 (0.9-2); Albumin Level 2.5 gm/dl (3.4-5.0); BUN Creatinine Ratio 10.9 (10-20); Bilirubin,Total 0.9 mg/dl (0.2-1.0); Calcium 8.1 mg/dl (8.6-10.3); Creatinine Clr Calc Pharmacy 169.9 ml/min; Globulin 4.5 gm/dl (2.5-4.0); Magnesium 1.7 mg/dl (1.7-2.4); Potassium 3.4 mmol/L (3.5-5.1)
[2023-01-20] MEDS ORDERED: POTASSIUM CHLORIDE CRTAB 20 MEQ TABCR PO STA (07:25)
[2023-01-20] MEDS: MULTIVITAMIN TAB PO SCH (09:30)
[2023-01-20] MEDS: THIAMINE HCL 100 MG TAB PO SCH ×3 (09:30→20:11)
[2023-01-20] MEDS: FOLIC ACID 1 MG TAB PO SCH (09:30)
[2023-01-20] MEDS: MAGNESIUM OXIDE 400 MG TAB PO SCH ×2 (09:45→20:10)
[2023-01-20] MEDS ORDERED: ONDANSETRON INJ 2 MG/ML 2 ML VIAL ONE (10:20)
[2023-01-20] MEDS ORDERED: GLYCOPYRROLATE 0.2 MG/ML VIAL ONE (10:20)
[2023-01-20] MEDS ORDERED: PROPOFOL IV EMULSION 10 MG/ML 20 ML VIAL IV ONE (10:20)
[2023-01-20] MEDS ORDERED: LIDOCAINE 2% 2 ML VIAL/AMP(20MG/ML) INFIL ONE (10:20)
[2023-01-20] MEDS ORDERED: BENZOCAINE/TETRACAIN/BUTAM 50 APPLN/5 GM CAN EXT ONE (10:26)
--- NOTE | 2023-01-20 10:34 | Anesthesiology Consultation ---
Date of Service January 20, 2023 Assessment & Plan Chart Review Chart Review: 3d specialist initiated History Surgery Operation Date: 01/20/23 12:00 Proposed Procedures p Transesophageal Echo w/Anesthesia - James Gann MD Height/Weight Height: 5 ft 11 in Weight: 75.9 kg Allergies Allergy/AdvReac Type Severity Reaction Status Date / Time ondansetron [From Zofran] AdvReac Hallucinati Verified 01/10/23 02:18 ng Medications Home Medications Medication Instructions Recorded Confirmed Last Taken aluminum chloride 20 % topical 1 applic topical 2XWK PRN 08/06/21 01/10/23 Unknown solution (Drysol) excessive sweating #37.5 mL mometasone 50 mcg/actuation nasal 2 spray intranasal DAILY PRN nasal 08/15/21 01/10/23 Unknown spray congestion #17 grams dextroamphetamine-amphetamine 7.5 7.5 mg PO DAILY #30 tabs 10/13/22 01/10/23 Unknown mg tablet (Adderall) sildenafil (pulm.hypertension) 20 50 mg (2.5 x 20 mg) PO ONCE PRN 11/18/22 01/10/23 Unknown mg tablet sexual activity #60 tabs trazodone 50 mg tablet 25 - 50 mg PO HS PRN Sleep 01/10/23 01/10/23 Unknown Active Medications Generic Name Dose Route Start Last Admin Trade Name Freq PRN Reason Stop Dose Admin Acetaminophen 650 mg 01/10/23 04:45 01/20/23 04:57 Acetaminophen 325 Mg Tab PO 02/09/23 04:44 650 mg Q4H PRN Administration Pain or Fever Folic Acid 1 mg 01/10/23 09:00 01/20/23 09:30 Folic Acid 1 Mg Tab PO 02/09/23 08:59 1 mg QAM TOMY Administration Nafcillin Sodium 2,000 mg/ 100 mls @ 100 mls/hr 01/19/23 22:00 01/20/23 09:29 Dextrose IV 02/02/23 21:59 100 mls/hr Q4H TOMY Administration Magnesium Oxide 400 mg 01/13/23 10:00 01/20/23 09:45 Magnesium Oxide 400 Mg Tab PO 02/12/23 09:59 400 mg BID TOMY Administration Multivitamins 1 tab 01/10/23 09:00 01/20/23 09:30 Multivitamin Tab PO 02/09/23 08:59 1 tab QAM TOMY Administration Phenobarbital 30 mg 01/14/23 22:00 01/19/23 22:23 Phenobarbital 30 Mg Tab PO 01/20/23 21:59 30 mg Q24H TOMY Administration Taper Thiamine HCl 500 mg 01/19/23 21:00 01/20/23 09:30 Thiamine Hcl 100 Mg Tab PO 01/22/23 20:59 500 mg TID TOMY Administration Past Medical History Medical History Alcohol abuse with intoxication Anxiety Past Family History Family History Mother Breast cancer Grandfather (Paternal) Myocardial infarction Uncle Prostate cancer Denies family history of Colon cancer Ovarian cancer Past Surgical History Surgical History History of wisdom tooth extraction Social History Smoking Status: Former smoker Do You Dip or Chew Tobacco: No Hx Alcohol Use: Yes Alcohol type: beer and hard liquor Hx Substance Use: No Physical Exam Vital Signs Last Vital Signs Temp 98.8 F 01/20/23 07:50 Pulse 98 H 01/20/23 08:00 Resp 20 01/20/23 07:50 BP 120/77 01/20/23 07:50 Pulse Ox 96 01/20/23 07:50 O2 Del Method Nasal Cannula 01/20/23 08:00 O2 Flow Rate 0 01/18/23 20:09 FiO2 21 01/18/23 22:32 Testing Laboratory Results 01/20/23 05:57 01/20/23 05:57 PT 12.5 Seconds (9.0-12.0) H 01/17/23 05:45 INR 1.2 (0.9-1.1) H 01/17/23 05:45 Urine Color [place] 01/15/23 Unknown Urine Appearance Clear (Clear) 01/15/23 Unknown Urine pH 6.0 (4.5-7.5) 01/15/23 Unknown Ur Specific [place] 1.029 (1.000-1.030) 01/15/23 Unknown Urine Protein 1+ (Negative) H 01/15/23 Unknown Urine Glucose (UA) Negative (Negative) 01/15/23 Unknown Urine Ketones 1+ (Negative) H 01/15/23 Unknown Urine Nitrite Positive (Negative) A 01/15/23 Unknown Ur Leukocyte Esterase Trace (Negative) H 01/15/23 Unknown Urine WBC (Auto) 1-5 /hpf (0-5) 01/15/23 Unknown Urine RBC (Auto) 5-10 /hpf (0-4) H 01/15/23 Unknown U Hyaline Cast (Auto) 5-10 /lpf (0-5) H 01/15/23 Unknown U Epithel Cells (Auto) 10-20 /lpf (0-5) H 01/15/23 Unknown Urine Bacteria (Auto) Negative (Negative) 01/15/23 Unknown 01/15/23 07:57 Aerobic Blood Culture - Final Blood No growth in Aerobic bottle after 5 days. Anaerobic Blood Culture - Final No growth in Anaerobic bottle after 5 days. 01/15/23 07:57 Aerobic Blood Culture - Final Blood No growth in Aerobic bottle after 5 days. Anaerobic Blood Culture - Final No growth in Anaerobic bottle after 5 days. 01/18/23 11:27 Aerobic Blood Culture - Preliminary Blood No growth in Aerobic bottle after 24 hours. Anaerobic Blood Culture - Final 01/18/23 11:27 Aerobic Blood Culture - Preliminary Blood No growth in Aerobic bottle after 24 hours. Anaerobic Blood Culture - Preliminary No growth in Anaerobic bottle after 24 hours. 01/13/23 11:44 Throat Culture - Final Throat Moderate normal erick. 01/13/23 13:55 Gram Stain - Final Back,Upper Wound Culture - Final Staphylococcus aureus 01/13/23 10:06 Aerobic Blood Culture - Final Blood Staphylococcus aureus Anaerobic Blood Culture - Final Staphylococcus aureus 01/13/23 10:02 Aerobic Blood Culture - Final Blood Staphylococcus aureus Anaerobic Blood Culture - Final Staphylococcus aureus Electrocardiogram Date: 01/10/23 DICTATED BY:Morris Carvajal MD Test Reason : Blood Pressure : / mmHG Vent. Rate : 123 BPM Atrial Rate : 123 BPM P-R Int : 152 ms QRS Dur : 098 ms QT Int : 322 ms P-R-T Axes : 066 070 070 degrees QTc Int : 460 ms Sinus tachycardia Otherwise normal ECG No previous ECGs available Confirmed by Morris Carvajal ([id number]) on 01/10/2023 7:46:30 AM
--- NOTE | 2023-01-20 11:06 | Post Operative Brief Note ---
Cardiology Brief Post Op Date of Surgery January 20, 2023 Pre & Post Diagnosis Pre Operation Date: 01/20/23 12:00 <No data on this case meets the specified criteria> Pre Dx: R/O SBE Post Dx: No vegetations, No PFO Procedure SHARON with anesthesia Husbandry Person James Gann MD Chemical Etch Operator Clarita Crum Estimated Blood Loss 0 Findings Consistent with Post-Op Diagnosis No vegetations No PFO
--- NOTE | 2023-01-20 11:43 | Anesthesiology Progress Note ---
Date of Service January 20, 2023 Anesthesia Post Procedure Vital Signs Vital Signs: Temp Pulse Pulse Resp BP BP Pulse Ox 01/20/23 11:18 86 24 130/75 97 01/20/23 10:58 99 H 24 99/69 L 97 01/20/23 10:40 88 22 140/79 95 01/20/23 08:00 98 H 01/20/23 08:00 01/20/23 07:50 98.8 F 82 20 120/77 96 01/20/23 03:00 100.0 F H 90 18 123/77 92 01/19/23 22:35 96 H 01/19/23 20:00 01/19/23 19:21 99.1 F 104 H 18 127/83 93 01/19/23 17:01 99.7 F H 103 H 22 145/94 H 92 O2 Del Method O2 Flow Rate 01/20/23 11:18 Room Air 01/20/23 10:58 Nasal Cannula 3 01/20/23 10:40 Room Air 01/20/23 08:00 01/20/23 08:00 Nasal Cannula 01/20/23 07:50 Room Air 01/20/23 03:00 Room Air 01/19/23 22:35 01/19/23 20:00 Room Air 01/19/23 19:21 Room Air 01/19/23 17:01 Room Air Pain Intensity Generalized: Pain Intensity: 0 Transfer of Care Handoff Completed per policy Notes Mental Status: alert / awake / arousable and participated in evaluation Patient Amnestic to Procedure: Yes Nausea / Vomiting: adequately controlled Pain: adequately controlled Airway Patency, RR, SpO2: stable & adequate BP & HR: stable & adequate Hydration State: stable & adequate Anesthetic Complications: no major complications apparent and Pt Satisfied with anesthetic care
--- NOTE | 2023-01-20 12:07 | XCELERA ---
[id number] [id number]
--- NOTE | 2023-01-20 12:26 | Procedure Note ---
Procedure Note Date of Service January 20, 2023 Note Procedure: Transesophageal echocardiogram with anesthesia Protocol: After informed consent and a time-out performed, the oropharynx was anesthetized with topical Cetacaine. the patient was sedated smoothly by Dr. Santacruz. The patient was monitored continuously by telemetry, end-tidal CO2, pulse oximetry, and sphygmomanometry. With a bite block in place, a lubricated transesophageal probe was easily advanced into the esophagus. Results of the procedure are under separate report. There were no complications. The patient tolerated the procedure well. He was hemodynamically stable, conversant, and without complaints following the procedure. Coding
[2023-01-20] MEDS ORDERED: LIDOCAINE 1% LOCAL 20 ML VIAL ONE ×2 (14:17→14:18)
[2023-01-20] MEDS ORDERED: LIDOCAINE 2% LOCAL 50 ML VIAL ONE ×2 (14:23→18:16)
--- NOTE | 2023-01-20 15:44 | XRay Report ---
XR chest 1V portable HISTORY: check right chest tube placement COMPARISON: Chest CT 01/19/2023. FINDINGS: Interval placement of a right-sided chest tube which is likely located within the partially loculated right pleural effusion. The bilateral pleural effusions are similar in size. No pneumothor ax. The heart is normal in size. No evidence for pulmonary edema. Bibasilar densities persist. This m ay represent compressive atelectasis from the pleural effusions or a pneumonia. IMPRESSION: 1. Interval placement of right pleural catheter. No pneumothorax. 2. Bilateral pleural effusions are similar in size. Bibasilar densities persist. ACT 112: Negative or not required by law. Electronically signed by: Timmy Sherman M.D. 01/20/2023 3:43 PM
--- NOTE | 2023-01-20 16:06 | Procedure Note ---
Procedure Note Date of Service January 20, 2023 Note PIGTAIL CATHETER PLACEMENT NOTE: Procedure: Pigtail Catheter Chest Tube Placement Indication: Fibrothorax Anesthesia: 10 mL lidocaine 1% Written consent was obtained and placed on the chart. Timeout was done prior to the procedure. Prior to procedure, chest x-ray films were reviewed by myself and demonstrated a large fibrothorax. A time-out was completed verifying correct patient, procedure, site, positioning, and implant(s) or special equipment if applicable. Utilizing bedside ultrasound, chest wall was evaluated for location for optimal chest tube placement. Location between the fifth and 6 ribs were marked on the skin using gentle pressure. The right sided chest wall was prepped with chlorhexidine and draped in the typical sterile fashion. 10 mL of 1% Lidocaine without epinephrine was used to anesthetize the skin down to the dorsal surface of the fifth rib. Sanguinous fluid return confirmed entry into the pleural space. Lidocaine was injected into the pleural space for increased anesthetization. Introducer needle on syringe was inserted in perpendicular fashion taking care to ride just above the dorsal surface of the fifth rib. Entry into the pleural space was heralded by sanguinous fluid return into the syringe while under gentle aspiration. Guide wire was advanced into the pleural space without resistance and the introducer needle was subsequently removed. Scalpel was used to make small incision of the superficial tissue, parallel to the direction of the rib anatomy. Dilator was advanced uneventfully over the guide wire into the pleural space. 14 [place] Pigtail Catheter was inserted into the pleural space. Inner introducer and guide wire were removed. Drain was immediately connected to pre-prepared NANDA pleur-evac system. Pigtail was sutured securely in place and sterile dressing was applied. Chest tube was placed to -20 cmH2O suction. Patient tolerated procedure well. Blood Loss: Minimal Complications: None Post procedure x-ray did demonstrate adequate placement. I had a lengthy discussion with the patient and family. Due to the flow from the chest tube being very resistant and thick coagulated blood being aspirated, will obtain a CT chest without contrast stat to ensure the placement of the chest tube is adequate. He has a very complex fibrothorax possibly due to hemothorax on admission and complicated by MSSA empyema. If CT chest demonstrates adequate placement and drainage continues to be minimal, would recommend transfer to tertiary center for VATS decortication. Coding CPT Codes Pulmonary/Thoracic - Pulmonary and Thoracic: 24758 Tube thoracostomy ([id number]) [facility] [place]Charges) Pulmonary/Thoracic Procedure 1: Pulmonary and Thoracic: 25390 Tube thoracostomy
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
[2023-01-20 16:17] LABS: Hematocrit (blood only) 28.3 % (42.0-52.0); Hemoglobin 9.6 g/dl (14.0-18.0); Mean Corpuscular Hemoglobin 33.7 pg (25.0-34.0); Mean Corpuscular Hgb Conc 33.9 g/dL (32.0-36.0); Mean Corpuscular Volume 99.3 fL (80.0-100.0); Mean Platelet Volume 9.9 fL (9.4-12.4); Platelet Count 715 K/uL (130-400); RDW Coefficient of Variation 13.6 % (11.5-14.5); RDW Standard Deviation 50.4 fL (36.4-46.3); Red Blood Count 2.85 M/uL (4.70-6.10); White Blood Count 9.83 K/ul (4.8-10.8)
--- NOTE | 2023-01-20 16:38 | CT Scan Report ---
CT SCAN OF THE CHEST WITHOUT IV CONTRAST CLINICAL HISTORY: Chest tube placement. COMPARISON STUDY: Chest CT dated 01/19/2023. Chest x-ray dated 01/20/2023. TECHNIQUE: CT scan of the thorax was performed from the thoracic inlet to the upper abdomen. Images are reviewed in the axial, sagittal, and coronal planes. IV contrast was not administered for this ex amination as per the referring clinician. A dose lowering technique was utilized adhering to the josé castillo of MARCOS. CT DOSE: 237.28 mGy.cm FINDINGS: Thyroid: Imaged portions of the thyroid gland are normal in size and attenuation. Thoracic aorta: The thoracic aorta is normal in caliber and demonstrates standard 3-vessel arch anato my. Heart: The heart is normal in size and without pericardial effusion. There is advanced coronary arter y atherosclerosis. Lungs and pleural spaces: There are moderate pleural effusions, right larger than left with dependent consolidation. A right-sided chest tube has been placed. This enters posteriorly between the 8th and 9th ribs and extends into the right lower lobe parenchyma. This is not located within the pleural sp best. There are pulmonary lacerations adjacent to the chest tube. The largest is seen on image #139 an d measures approximately 3.5 cm in length. This abuts the major fissure. No pneumothorax is seen. Loc ulated fluid is again seen along the right major fissure. There are at least 5 right apical pulmonary nodules, the largest of which demonstrate cavitation. The largest measures 12 mm. These are seen on images #40, #47, #56, and #70. Additional scattered subcentimeter nodules are scattered throughout th e left lower lobe. There is consolidation in the anterior paramediastinal left upper lobe on image #9 3 which also demonstrates cavitation. Mediastinum: There is no mediastinal lymphadenopathy. Vi: Not well assessed without IV contrast. Axillae: There is no axillary lymphadenopathy. Upper abdomen: The liver is severely steatotic. Partially visualized upper abdominal viscera is other milton grossly unremarkable. Skeletal structures: No lytic or blastic bony lesions are seen. IMPRESSION: 1. A right sided chest tube has been placed as above. This is not located within the pleural space, a nd this extends into the right lower lobe lung parenchyma. Repositioning is indicated. 2. There are adjacent pulmonary lacerations in the right lower lobe as detailed above. 3. Moderate pleural effusions with dependent consolidation. 4. There are numerous small pulmonary nodules, greatest in the right upper lobe. The larger nodules d emonstrate foci of cavitation, and there is also cavitary consolidation within the paramediastinal le ft upper lobe seen anteriorly. This is likely infectious, and would be typical for septic emboli as c linically suspected. 5. No pneumothorax is seen. 6. Age advanced coronary artery atherosclerosis. 7. Severe hepatic steatosis. ACT 112: Negative or not required by law. Electronically signed by: Colin Kumar M.D. 01/20/2023 4:36 PM
[2023-01-20 16:47] LABS: INR 1.2 (0.9-1.1); Partial Thromboplastin Ratio 1.1; Partial Thromboplastin Time 30.6 Seconds (21.0-31.0); Prothrombin Time 12.7 Seconds (9.0-12.0)
[2023-01-20] MEDS ORDERED: fentaNYL citrate PF 100 MCG/2 ML VIAL IV ONE (17:48)
[2023-01-20] MEDS ORDERED: LORazepam 2 MG/1 ML VIAL IV STA (17:48)
[2023-01-20] MEDS ORDERED: fentaNYL citrate PF 100 MCG/2 ML VIAL ONE (17:48)
--- NOTE | 2023-01-20 18:03 | Billing Data ---
Date of Service January 20, 2023 Coding Level of Care Code 36685 SUB INP/OBS CARE MIN
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
--- NOTE | 2023-01-20 19:19 | XRay Report ---
XR chest 1V portable HISTORY: s/p chest tube attempt COMPARISON: Chest CT 01/20/2023. FINDINGS: Right-sided chest tube remains unchanged in position. This was demonstrated to be within th e right lower lobe rather than the loculated pleural effusion. Tiny lucency at the right lung apex co uld represent a pneumothorax or the overlapping rib. Small left pleural effusions and patchy bibasila r densities persist. The heart is normal in size. There are low lung volumes. IMPRESSION: 1. Right-sided chest tube remains unchanged in position. This was demonstrated to be within the right lower lobe rather than the loculated pleural effusion on the recent chest CT. 2. Questionable tiny right apical pneumothorax. Follow-up recommended to ensure stability. ACT 112: Negative or not required by law. Electronically signed by: Timmy Sherman M.D. 01/20/2023 7:17 PM
--- NOTE | 2023-01-20 22:20 | XRay Report ---
SINGLE VIEW CHEST CLINICAL HISTORY: Chest tube. Empyema FINDINGS: An AP, portable, upright chest radiograph is compared to chest x-ray and chest CT performed earlier the same day 01/20/2023. The cardiomediastinal silhouette is unremarkable. A chest tube at th e right lung base has been repositioned. There are layering pleural effusions with dependent consolid ation. No pneumothorax is seen. The bony thorax is grossly intact. IMPRESSION: 1. A right chest tube has been repositioned. No pneumothorax is seen. 2. Layering pleural effusions with dependent consolidation. ACT 112: Negative or not required by law. Electronically signed by: Colin Kumar M.D. 01/20/2023 10:19 PM
[2023-01-21] MEDS: NAFCILLIN SODIUM 2,000 MG in DEXTROSE 5% MINI-B 100 ML IV SCH ×4 (03:23→14:35)
[2023-01-21 04:22] LABS: Hematocrit (blood only) 27.7 % (42.0-52.0); Hemoglobin 9.2 g/dl (14.0-18.0); Mean Corpuscular Hemoglobin 33.1 pg (25.0-34.0); Mean Corpuscular Hgb Conc 33.2 g/dL (32.0-36.0); Mean Corpuscular Volume 99.6 fL (80.0-100.0); Mean Platelet Volume 9.8 fL (9.4-12.4); Platelet Count 646 K/uL (130-400); RDW Coefficient of Variation 13.5 % (11.5-14.5); RDW Standard Deviation 49.9 fL (36.4-46.3); Red Blood Count 2.78 M/uL (4.70-6.10); White Blood Count 9.91 K/ul (4.8-10.8)
[2023-01-21 05:25] LABS: Albumin Level 2.4 gm/dl (3.4-5.0); BUN Creatinine Ratio 9.5 (10-20); Calcium 8.4 mg/dl (8.6-10.3); Creatinine Clr Calc Pharmacy 103.6 ml/min; Est GFR (African American) 105.3 ml/min; Est GFR (Non-African American) 90.9 ml/min; Globulin 4.1 gm/dl (2.5-4.0); Magnesium 1.9 mg/dl (1.7-2.4); Phosphorus 5.2 mg/dl (2.5-4.9); Potassium 4.1 mmol/L (3.5-5.1); Total Protein 6.5 gm/dl (6.0-8.3)
[2023-01-21 05:26] LABS: Albumin Globulin Ratio 0.6 (0.9-2)
--- NOTE | 2023-01-21 08:19 | XRay Report ---
XR chest 1V portable HISTORY: Respiratory failure. COMPARISON: Chest 01/20/2023. FINDINGS: Right basilar chest tube is unchanged in position. Loculated right pleural effusion is not simply changed in size. No pneumothorax. A small left pleural effusions and bibasilar densities persi st. The heart is normal in size. IMPRESSION: 1. Right basilar chest tube is unchanged in position. No pneumothorax. 2. Bilateral pleural effusions and bibasilar densities persist. ACT 112: Negative or not required by law. Electronically signed by: Timmy Sherman M.D. 01/21/2023 8:18 AM
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
[2023-01-21] MEDS: ACETAMINOPHEN 325 MG TAB PO PRN (08:41)
[2023-01-21] MEDS: THIAMINE HCL 100 MG TAB PO SCH ×2 (09:40→14:35)
[2023-01-21] MEDS: MULTIVITAMIN TAB PO SCH (09:40)
[2023-01-21] MEDS: FOLIC ACID 1 MG TAB PO SCH (09:40)
[2023-01-21] MEDS: MAGNESIUM OXIDE 400 MG TAB PO SCH (09:41)
[2023-01-21] MEDS ORDERED: OPTIRAY 320 100ml IV ONE (12:44)
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
[2023-01-21] MEDS ORDERED: LORazepam 1 MG in SYRINGE 0.5 ML IV PRN (14:40)
--- NOTE | 2023-01-21 19:47 | Billing Data ---
Date of Service January 21, 2023 Coding Level of Care Code 76052 IN/OBS DISCH 30 MIN/LESS
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
[2023-01-23 22:57] LABS: HIV 1 RNA PCR Copies/ML Not Detected Copies/mL; HIV-1 RNA Log Copies/mL Not Detected Log cps/mL
== END 2023-01-21 15:47 | disposition short-term general hospital (02) | DRG 896 ==
LOC: ED 21:56 → SUATTDRO 01-10 02:40 → EDINP 01-10 02:40 → 2N 01-10 04:46 → 2S 01-11 23:20 → 1E 01-12 18:12 → 2E 01-14 18:35 → 1E 01-20 18:32